=== PATIENT | female | born 1995 | race Two or more races ===

== ENCOUNTER 2023-09-04 10:28 | Outpatient (CLI) | payer OTHER | END 2023-09-04 10:30 | disposition home or self-care (01) | LOC: PRENATAL 10:28 | PROVIDERS: ATTEND Obstetrics & Gynecology Maternal & Fetal Medicine | DX: O35.9XX0 Maternal care for (suspected) fetal abnormality and damage, unspecified, not applicable or unspecified (principal); O35.3XX0 Maternal care for (suspected) damage to fetus from viral disease in mother, not applicable or unspecified; O44.02 Complete placenta previa NOS or without hemorrhage, second trimester; O14.92 Unspecified pre-eclampsia, second trimester; O34.219 Maternal care for unspecified type scar from previous cesarean delivery; Z3A.20 20 weeks gestation of pregnancy ==

== ENCOUNTER 2023-10-29 10:10 | Outpatient (CLI) | payer OTHER | END 2023-10-29 10:11 | disposition home or self-care (01) | LOC: PRENATAL 10:10 | PROVIDERS: ATTEND Obstetrics & Gynecology Maternal & Fetal Medicine | DX: O26.849 Uterine size-date discrepancy, unspecified trimester (principal); O14.90 Unspecified pre-eclampsia, unspecified trimester; O34.219 Maternal care for unspecified type scar from previous cesarean delivery; Z3A.28 28 weeks gestation of pregnancy ==

== ENCOUNTER 2023-12-09 10:32 | Outpatient (CLI) | payer OTHER | END 2023-12-09 10:34 | disposition home or self-care (01) | LOC: PRENATAL 10:32 | PROVIDERS: ATTEND Obstetrics & Gynecology Maternal & Fetal Medicine | DX: O26.849 Uterine size-date discrepancy, unspecified trimester (principal); O36.8199 Decreased fetal movements, unspecified trimester, other fetus; O34.219 Maternal care for unspecified type scar from previous cesarean delivery; Z3A.33 33 weeks gestation of pregnancy ==